=== PATIENT | male | born 1965 | race Caucasian/White ===

== ENCOUNTER 2019-05-18 07:49 | Emergency (ER) | payer OTHER, BC ==
[2019-05-18] MEDS ORDERED: SODIUM CHLORIDE 0.9% 1,000 ML IV STA (08:12)
[2019-05-18] MEDS ORDERED: METOCLOPRAMIDE 5 MG/ML 2 ML VIAL IVP STA (08:12)
[2019-05-18] MEDS ORDERED: MECLIZINE 12.5 MG TAB PO STA (08:12)
--- NOTE | 2019-05-18 08:16 | ED ---
General Adult HPI - General Chief complaint: Dizziness Stated complaint: Dizzy Time Seen by Provider: 05/18/19 07:55 Source: patient, RN notes reviewed Mode of arrival: ambulatory Limitations: no limitations - History of Present Illness Initial comments: Patient is a pleasant 53-year-old male presenting to the emergency Department with complaints of dizziness. Onset of symptoms was an hour or so ago. Patient was getting ready go hunting when he felt suddenly dizzy. Dizziness is described as lightheadedness. Dizziness is not described as a spinning type sensation. Symptoms are somewhat worse with upright position and movement. Symptoms do improve with lying down or resting. No history of similar symptoms previously. No headache. No confusion. No isolated area of weakness. Patient is able to walk. - Related Data Home Medications Medication Instructions Recorded Confirmed Aspirin/Acetaminophen/Caffeine 2 tab PO Q12HR PRN 05/18/19 05/18/19 [Excedrin Extra Strength Caplet] Cider Vinegar [Apple Cider Vinegar] 300 mg PO DAILY 05/18/19 05/18/19 Vitamin E (Dl,Tocopheryl Acet) 400 unit PO DAILY 05/18/19 05/18/19 [Vitamin E] Previous Rx's Medication Instructions Recorded Metoclopramide HCl [Reglan] 10 mg PO Q6HR PRN #15 tablet 05/18/19 amLODIPine [Norvasc] 5 mg PO DAILY #7 tab 05/18/19 Allergies Allergy/AdvReac Type Severity Reaction Status Date / Time No Known Allergies Allergy Verified 05/18/19 09:20 Review of Systems ROS Statement: Those systems with pertinent positive or pertinent negative responses have been documented in the HPI. ROS Other: All systems not noted in ROS Statement are negative. Constitutional: Denies: fever Eyes: Denies: eye pain ENT: Denies: ear pain Respiratory: Denies: cough Cardiovascular: Denies: chest pain Endocrine: Denies: fatigue Gastrointestinal: Denies: vomiting Genitourinary: Denies: dysuria Musculoskeletal: Denies: back pain Skin: Denies: rash Neurological: Denies: headache, weakness, numbness, paresthesias, confusion, a bnormal gait Past Medical History Past Medical History: Hypertension History of Any Multi-Drug Resistant Organisms: None Reported Past Surgical History: Orthopedic Surgery Additional Past Surgical History / Comment(s): left knee surgery Past Psychological History: No Psychological Hx Reported Smoking Status: Never smoker Past Alcohol Use History: Occasional Past Drug Use History: None Reported General Exam Limitations: no limitations General appearance: alert, in no apparent distress Head exam: Present: atraumatic, normocephalic Eye exam: Present: normal appearance, PERRL, EOMI, nystagmus (Patient does have mild horizontal nystagmus) ENT exam: Present: normal oropharynx Neck exam: Present: normal inspection Respiratory exam: Present: normal lung sounds bilaterally Cardiovascular Exam: Present: normal rhythm, bradycardia GI/Abdominal exam: Present: soft. Absent: tenderness Extremities exam: Present: normal inspection Neurological exam: Present: alert, oriented X3, CN II-XII intact. Absent: motor sensory deficit Expanded Neurological exam: Present: protecting the airway Speech: Present: fluid speech Cranial nerves: EOM's Intact: Normal, Facial Sensation: Normal Cerebellar function: Finger to Nose: Normal Sensory exam: Upper Extremity Light Touch: Normal, Lower Extremity Light Touch: Normal Motor strength exam: RUE: 5, LUE: 5, RLE: 5, LLE: 5 Eye Response: (4) open spontaneously Motor Response: (6) obeys commands Verbal Response: (5) oriented Psychiatric exam: Present: normal affect, normal mood Skin exam: Present: normal color Course Vital Signs 05/18/19 07:52 Temperature 97.9 F Pulse Rate 57 L Respiratory 19 Rate Blood Pressure 173/88 O2 Sat by Pulse 97 Oximetry EKG Findings - EKG Comments: EKG Findings:: Sinus bradycardia 53. MN 152. QRS 90. QT 416. QTc 390. Normal axis. Normal QRS. No acute ST change. Medical Decision Making - Medical Decision Making Patient reevaluated and resting comfortably in bed. Patient did get up using restroom with significant improvement of symptoms. Patient states he is near symptom-free. Patient updated on results and need for follow-up. Patient states he does have a history of hypertension however has not seen his doctor recently regarding this. Patient is currently not on blood pressure medication. - Lab Data Result diagrams: 05/18/19 08:10 05/18/19 08:10 Lab Results 05/18/19 05/18/19 05/18/19 Range/Units 08:10 08:10 08:10 WBC 5.2 (3.8-10.6) k/uL RBC 5.23 (4.30-5.90) m/uL Hgb 16.2 (13.0-17.5) gm/dL Hct 46.7 (39.0-53.0) % MCV 89.2 (80.0-100.0) fL MCH 31.0 (25.0-35.0) pg MCHC 34.7 (31.0-37.0) g/dL RDW 12.4 (11.5-15.5) % Plt Count 251 (150-450) k/uL Neutrophils % 61 % Lymphocytes % 24 % Monocytes % 6 % Eosinophils % 5 % Basophils % 1 % Neutrophils # 3.1 (1.3-7.7) k/uL Lymphocytes # 1.3 (1.0-4.8) k/uL Monocytes # 0.3 (0-1.0) k/uL Eosinophils # 0.3 (0-0.7) k/uL Basophils # 0.1 (0-0.2) k/uL PT 9.9 (9.0-12.0) sec INR 0.9 (<1.2) APTT 24.1 (22.0-30.0) sec Sodium 141 (137-145) mmol/L Potassium 4.3 (3.5-5.1) mmol/L Chloride 107 (98-107) mmol/L Carbon Dioxide 25 (22-30) mmol/L Anion Gap 9 mmol/L BUN 21 H (9-20) mg/dL Creatinine 1.12 (0.66-1.25) mg/dL Est GFR (CKD-EPI)AfAm 88 (>60 ml/min/1.73 sqM) Est GFR (CKD-EPI)NonAf 76 (>60 ml/min/1.73 sqM) Glucose 92 (74-99) mg/dL Calcium 9.9 (8.4-10.2) mg/dL Total Bilirubin 1.1 (0.2-1.3) mg/dL AST 23 (17-59) U/L ALT 37 (21-72) U/L Alkaline Phosphatase 59 (38-126) U/L Total Protein 7.1 (6.3-8.2) g/dL Albumin 4.2 (3.5-5.0) g/dL - Radiology Data Radiology results: report reviewed (Computed tomography scan of the brain and CT angiogram revealed no acute process.) Disposition Clinical Impression: Lightheadedness, Hypertension Disposition: HOME SELF-CARE Condition: Stable Instructions (If sedation given, give patient instructions): Dizziness (ED) Additional Instructions: Please follow-up with your primary care physician in the beginning the week for follow-up. Please have primary care physician review report from today. Also have blood pressure rechecked. Consider follow-up with ENT and/or neurology. Return for increased dizziness, weakness, speech problems, difficulty walking, worsening symptoms or any other concerns. [id number] Antivert if needed. Prescriptions: amLODIPine [Norvasc] 5 mg PO DAILY #7 tab Metoclopramide HCl [Reglan] 10 mg PO Q6HR PRN #15 tablet PRN Reason: Nausea Is patient prescribed a controlled substance at d/c from ED?: No Referrals: Bay Negrete DO [Primary Care Provider] - 1-2 days Time of Disposition: 10:16
[2019-05-18 08:27] LABS: Basophils # (A) 0.1 k/uL (0-0.2); Basophils % (A) 1 %; Eosinophils # (A) 0.3 k/uL (0-0.7); Eosinophils % (A) 5 %; HCT 46.7 % (39.0-53.0); HGB 16.2 gm/dL (13.0-17.5); Lymphocytes # (A) 1.3 k/uL (1.0-4.8); Lymphocytes % (A) 24 %; MCHC 34.7 g/dL (31.0-37.0); MCV 89.2 fL (80.0-100.0); Mean Platelet Volume 5.5; Monocytes # (A) 0.3 k/uL (0-1.0); Monocytes % (A) 6 %; Neutrophils # (A) 3.1 k/uL (1.3-7.7); Neutrophils % (A) 61 %; Platelet Count 251 k/uL (150-450); RBC 5.23 m/uL (4.30-5.90); RDW 12.4 % (11.5-15.5); WBC 5.2 k/uL (3.8-10.6)
[2019-05-18 08:35] LABS: INR 0.9 (<1.2); Partial Thromboplastin Time 24.1 sec (22.0-30.0); Prothrombin Time 9.9 sec (9.0-12.0)
[2019-05-18 08:43] LABS: Albumin 4.2 g/dL (3.5-5.0); Calcium 9.9 mg/dL (8.4-10.2); Potassium 4.3 mmol/L (3.5-5.1); Total Bilirubin 1.1 mg/dL (0.2-1.3); Total Protein 7.1 g/dL (6.3-8.2)
--- NOTE | 2019-05-18 09:26 | CT ---
EXAMINATION TYPE: CT brain wo con, CT angio head neck DATE OF EXAM: 05/18/2019 HISTORY: vertigo COMPARISON: None. TECHNIQUE: 1. Axial CT images of the head without contrast. Bone windows and sagittal and coronal reformats were reviewed. 2. CTA scan of the head and neck is performed with IV Contrast, patient injected with 65 mL of Isovue 370, axial images are obtained, coronal and sagittal reformatted images are reviewed. Three-D recons tructed images are created on an independent workstation and reviewed. CT DLP: 1048 mGycm Automated exposure control for dose reduction was used. FINDINGS: CT Head: No acute intracranial hemorrhage. Chery-white differentiation is preserved. The ventricular system is normal in size and morphology. No abnormal extra-axial fluid collections or midline shift of structures. Patent basal cisterns. No depressed or displaced calvarial fracture. Vi sualized paranasal sinuses and temporal bone structures are well aerated. The orbits and skull base a re unremarkable. CTA Neck: Three-vessel arch without ostial stenosis. Normal course and caliber of the common carotid arteries. Carotid bifurcations are patent bilaterally. Internal and external carotid arteries are patent bilate rally. The vertebral arteries arise from the respective subclavian arteries without ostial stenosis. Vertebr al arteries are patent, dominant right vertebral artery. CTA Head: Distal internal carotid arteries are patent. Anterior and middle cerebral arteries are patent. Single anterior communicating artery is patent. Posterior communicating arteries are visualized bilaterally . Posterior cerebral arteries are patent. Distal vertebral and basilar artery are patent. No evidence for aneurysm. IMPRESSION: 1. No acute intracranial abnormality. 2. Normal CTA of the head and neck.
[2019-05-18] MEDS ORDERED: amLODIPine 5 MG TAB PO STA (10:15)
[2019-05-18 10:45] VITALS: BP 155/102; PULSE 55; RESP 18; TEMP 98
== END 2019-05-18 10:44 | disposition home or self-care (01) ==
LOC: EC 07:49
DX: I10 Essential (primary) hypertension (principal); H55.00 Unspecified nystagmus; R00.1 Bradycardia, unspecified
CPT/HCPCS: 36415; 93005; 80053; 85025; 85610; 85730; 70496; 70450; 70498; 99284; 96374; 96361; J2765; Q9967